=== PATIENT | male | born 1950 | race Caucasian/White ===

== ENCOUNTER 2018-05-15 16:17 | Emergency (ER) | payer OTHER ==
[~2018-05-15] VITALS: Ht 177.8 cm; Wt 80.7 kg
--- NOTE | ~2018-05-15 | EKG ---
[address] [address] ELECTROCARDIOGRAM REPORT Name: ZEUSJEAN-PAUL BAUER [id number] Admission: 05/15/18 Attend Phys: Discharge: 05/15/18 Date of : 52 Report #: [id number] THIS REPORT FOR: //name// [facility] ED Test Date: 2018-05-15 Test Time: 16:36:56 Pat Name: JEAN-PAUL MENDOZA Department: Room: Gender: M Price Checker: KF : 1950 Requested By: Marycruz Best Order Number: [id number] MD: Oliver Porter Measurements Intervals [place] Rate: 83 P: 244 ID: [id number] QRS: -64 QRSD: 87 T: 266 QT: 389 QTc: 457 Interpretive Statements Low ectopic atrial rhythm Left anterior fascicular block No previous ECG available for comparison Electronically Signed On 05-16-2018 8:33:21 CDT by Oliver Porter [email or web address] <ELECTRONICALLY SIGNED> By: Oliver Porter MD 05/16/18 0833 [id number] Oliver Porter MD /[email or web address]
[2018-05-15] MEDS ORDERED: LISINOPRIL20 MG PO (16:29)
[2018-05-15] MEDS ORDERED: NEURONTIN600 MG PO (16:30)
[2018-05-15 17:06] LABS: ABSOLUTE NEUTROPHILS 4.2 thou/uL (1.4-8.2); BASOPHILS 0.6 % (0.0-2.0); EOSINOPHILS 0.2 % (0.0-3.0); HEMOGLOBIN 13.5 gm/dL (14.0-18.0); LYMPHOCYTES 17.5 % (24.0-44.0); MCH 27.9 pg (26.0-34.0); MCV 84.5 fL (80.0-100.0); MONOCYTES 7.1 % (1.0-8.0); PLATELET COUNT 200 thou/uL (150-400); POLYS 74.6 % (36.0-66.0); RBC 4.85 mil/uL (4.50-6.00); RDW 13.7 % (10.5-14.5); WBC 5.6 thou/uL (4.0-11.0)
[2018-05-15 17:28] LABS: LIPASE 84 U/L (73-393); TROPONIN-I <0.06 ng/mL (<0.06)
[2018-05-15 17:42] LABS: APTT 23.9 Seconds (24.5-32.8); D-DIMER 0.2 ug/mLFEU (0.19-0.50); PROTIME 10.7 Seconds (9.3-11.4)
[2018-05-15 18:39] LABS: URINE BILIRUBIN NEGATIVE (Negative); URINE BLOOD NEGATIVE (Negative); URINE CLARITY CLEAR; URINE COLOR YELLOW; URINE GLUCOSE-RANDOM* NEGATIVE (Negative); URINE KETONES NEGATIVE (Negative); URINE LEUKOCYTES-REFLEX NEGATIVE (Negative); URINE NITRITE-REFLEX NEGATIVE (Negative); URINE PROTEIN (DIPSTICK) NEGATIVE (Negative); URINE SPECIFIC GRAVITY <= 1.005 (1.005-1.035); URINE UROBILINOGEN 0.2 E.U./dl (0.2-1.0)
[2018-05-15] MEDS ORDERED: FLONASE 0.05%50 MCG NASAL (18:58)
[2018-05-15] MEDS ORDERED: AMOXICILLIN 50500 MG PO (18:58)
[2018-05-15 20:10] VITALS: BP 153/85
== END 2018-05-15 20:11 | disposition home or self-care (01) ==
LOC: ER 16:17
PROVIDERS: Physician Assistant
DX: G43.909 Migraine, unspecified, not intractable, without status migrainosus (principal); R07.9 Chest pain, unspecified; R09.81 Nasal congestion; B19.20 Unspecified viral hepatitis C without hepatic coma; Z86.73 Personal history of transient ischemic attack (TIA), and cerebral infarction without residual deficits